=== PATIENT | male | born 1960 | race Caucasian/White ===

== ENCOUNTER → 2018-05-09 | Outpatient (CLI) | payer BC, OTHER ==
--- NOTE | ~2018-05-09 | MCT ---
[facility] [place] [address] METHACHOLINE CHALLENGE TEST Name: RICARDA PHELAN Room #: REG [facility] Kira#: [id number] Admission: 05/09/18 Attend Phys: Boy Peñaloza MD Discharge: Date of : 56 Report #: [id number] THIS REPORT FOR: //name// Height: in Exam Date: Weight: lbs BTPS: X >> PRE BRONCHODILATOR: PREDICTED BEST %PRED FORCED VITAL CAPACITY (FRC) L LPM % FORCED EXP VOL/SEC (FEV1) L FEV/FVC % MAX MID-EXP FLOW (FEF 25-75) L/SEC L/SEC % PEAK EXP FLOW RATE (FEF MAX) L/MIN L/MIN MED-VC RATIO (FEF 50/FEF 50) .09 Baseline: Phenol Saline Level 1: 0.025 mg/ml BEST %PRED %CHANGE BEST %PRED %CHANGE FVC L % % FVC L % % FEV1 L % % FEV1 L % % Level 2: 0.25 mg/ml Level 3: 2.5 mg/ml BEST %PRED %CHANGE BEST %PRED %CHANGE FVC L % % FVC L % % FEV1 L % % FEV1 L % % . Level 4: 10 mg/ml Level 5: 25 mg/ml BEST %PRED %CHANGE BEST %PRED %CHANGE FVC L % % FVC L % % FEV1 L % % FEV1 L % % Post Bronchodilator: 1st Treatment Post Bronchodilator: 2nd Treatment BEST %PRED %CHANGE BEST %PRED %CHANGE FVC L % % FVC L % % FEV1 L % % FEV1 L % % Post Bronchodilator: 3rd Treatment BEST %PRED %CHANGE FVC L % % FEV1 L % % >> INTERPRETATION: [facility] [address] [place] [address] METHACHOLINE CHALLENGE TEST Name: DHEERAJ PHELANAILEEN Hill Room #: REG QING Malone#: [id number] Admission: 05/09/18 Attend Phys: Boy Peñaloza MD Discharge: Date of : 56 Report #: [id number] CC: Boy Celaya DATE OF SERVICE: 05/09/2018 FEV1 baseline was 4.09 liters (with increasing doses of methacholine, the FEV1 did not decline significantly). Response ____ to 3.38 liters a total of 17% decline with mild response to bronchodilator therapy in recovery. IMPRESSION: Overall, negative methacholine challenge test. There is some mild response suggestive of mildly hypersensitive response. By: Bigg Almodovar MD /nt
== END ==
LOC: PUL 08:06
DX: R06.00 Dyspnea, unspecified (principal)

== ENCOUNTER → 2019-07-24 | Outpatient (CLI) | payer BC, OTHER ==
[~2019-07-24] VITALS: Ht 182.9 cm; Wt 88.9 kg
[~2019-07-24] MED LIST: ASA81BEC PO; BYSTOLIC 5 MG5 MG PO; CLARITIN10 M3 PO; CO Q-10100 M1 PO; GINGER250 MG PO; GLUCOSAMINE1000 MG PO; LIPITOR 20 MG T20 M1 PO; NEXIUM 24HR20 M2 PO; NEXIUM5 MG PO; SENNA PLUS TAB1 EACH PO
--- NOTE | ~2019-07-24 | H ---
[facility] [place] [address] [place] [address] HISTORY AND PHYSICAL Name: RICARDA PHELAN Room #: REG QING [facility]#: [id number] Admission: 07/24/19 Attend Phys: Mic Dawson MD, Discharge: Date of : 56 Report #: [id number] THIS REPORT FOR: //name// CC: FAM unknown Mic FREY DATE OF SERVICE: 07/24/2019 SHORT STAY SUMMARY HISTORY OF PRESENT ILLNESS: The patient is a 59-year-old male who referred up by Dr. Husam Tomlin from [facility]. He has had some progressive dyspnea, shortness of breath, and fatigue for the last 6 months. He had somewhat of an equivocal stress test. He has a strong family history on his maternal side for premature coronary artery disease. He has been maintained on aspirin and atorvastatin. He also takes Claritin, CoQ10, glucosamine, and Nexium. He denies PND, orthopnea, but a definite decrease in exercise tolerance, no energy. 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 He has had some difficulty continuing on. He is a former tobacco user. PAST MEDICAL HISTORY: Positive for hypercholesterolemia, some borderline hypertension, and lipoma, laparoscopic cholecystectomy, and mild COPD from prior tobacco use. SOCIAL HISTORY: He is . He is a construction foreman. No current tobacco. Social alcohol, daily beers. FAMILY HISTORY: Strongly positive for premature coronary artery disease on his maternal side. REVIEW OF SYSTEMS: Essentially negative except for stated above with some nocturia noted. LABORATORY DATA: H and H was 14 and 44. His creatinine is 1.0. PHYSICAL EXAMINATION: VITAL SIGNS: Blood pressure is 142/80, pulse is 80s and regular. HEENT: Eyes reveal xanthelasmas. Pharynx is clear. NECK: Shows preserved upstrokes without JVD or bruits. LUNGS: Clear, slight expiratory phase. CARDIOVASCULAR: Regular rate and rhythm, S1, S2, without murmur or gallop. ABDOMEN: Soft. No HSM or abdominal bruit. EXTREMITIES: No edema. Distal pulses intact. NEUROLOGIC: Nonfocal. SKIN: Warm and dry without xanthoma or ulcer. [facility] [address] [place] [address] HISTORY AND PHYSICAL Name: RICARDA PHELAN Room #: [facility].#: [id number] Admission: 07/24/19 Attend Phys: Mic Dawson MD, Discharge: Date of : 56 Report #: [id number] MUSCULOSKELETAL: No gross joint deformity. HOSPITAL COURSE: The patient subsequently taken to the catheterization lab. There is evidence of significant 3-vessel coronary artery disease. This is proximal disease within the proximal LAD of 70-75%, filling of relatively large diagonal and LAD system. An ostial circ, which fills one moderate sized OM, which is 90%, just off the left main and the large dominant right has high-grade long lesions in the proximal and mid distal segments of 80%. Well preserved PDA, CHENCHO. His distal targets were quite good. His LV function is preserved. He will be best served with revascularization by bypass. Carotid Doppler from last month in [place] had minimal plaquing. ASSESSMENT: 1. Three-vessel coronary artery disease. Recommend revascularization by bypass surgery. 2. Hypercholesterolemia. 3. Mild chronic obstructive pulmonary disease with prior tobacco use. 4. Borderline hypertension. 5. Degenerative joint disease. RECOMMENDATIONS AND PLAN: Dr. Ronquillo, CV Surgery is going to evaluate the patient. He does not have high-grade lesions that I would be concerned about an acute closure. I am going to add a beta hayley 5 mg of Bystolic for cardioprotection, have him avoid the elements or work in the elements and then hopefully surgery will be scheduled for next week. I have discussed this with the patient and his . I will also notify Dr. Tomlin. Thank you for asking us to assist in the care of this patient. By: 0934 0958 /nt
[2019-07-24 06:50] VITALS: BP 135/68
[2019-07-24 07:02] LABS: HEMATOCRIT 44.3 % (42.0-52.0); HEMOGLOBIN 14.6 gm/dL (14.0-18.0); MCH 30.5 pg (26.0-34.0); MCHC 32.9 g/dL (28.0-37.0); MCV 92.5 fL (80.0-100.0); PLATELET COUNT 280 thou/uL (150-400); RBC 4.79 mil/uL (4.50-6.00); RDW 12.9 % (10.5-14.5); WBC 6.9 thou/uL (4.0-11.0)
[2019-07-24 07:09] LABS: CALCIUM 9.9 mg/dL (8.5-10.1); POTASSIUM 4.1 mmol/L (3.5-5.1)
--- NOTE | 2019-07-24 08:35 | EKG ---
[place] [address] [facility] [place] [address] ELECTROCARDIOGRAM REPORT Name: RICARDA PHELAN Room #: REG [facility]#: [id number] Admission: 07/24/19 Attend Phys: Mic Dawson MD, Discharge: Date of : 56 Report #: [id number] THIS REPORT FOR: //name// [facility] Test Date: 2019-07-24 Test Time: 07:17:59 Pat Name: RICARDA PHELAN Department: Room: Gender: M Business Process Manager: CORI : 1960 Requested By: Mic Dawson Order Number: [id number] MD: Vini Butterfield Measurements Intervals [place] Rate: 71 P: 65 IN: 175 QRS: -9 QRSD: 90 T: 41 QT: 367 QTc: 399 Interpretive Statements Sinus rhythm Probable left atrial enlargement RSR' in V1 or V2, right VCD or RVH Minimal ST elevation, anterior leads No previous ECG available for comparison Electronically Signed On 07-24-2019 8:34:46 [employer] by Vini Butterfield [email or web address] <ELECTRONICALLY SIGNED> By: Vini Butterfield MD 07/24/19 0834 6 6 Vini Butterfield MD /EPI
[2019-07-24 10:34] LABS: ALBUMIN 4.1 g/dL (3.4-5.0); TOTAL BILIRUBIN 0.3 mg/dL (<0.1-1.0); TOTAL PROTEIN 7.2 g/dL (6.4-8.2)
[2019-07-24 10:38] LABS: APTT 28.1 Seconds (24.5-32.8); PROTIME 10.7 Seconds (9.3-11.4)
[2019-07-24 10:45] LABS: ANISOCYTOSIS SLIGHT
[2019-07-24 11:18] LABS: URINE BILIRUBIN NEGATIVE (Negative); URINE BLOOD NEGATIVE (Negative); URINE CLARITY CLEAR; URINE COLOR YELLOW; URINE GLUCOSE-RANDOM* NEGATIVE (Negative); URINE KETONES NEGATIVE (Negative); URINE LEUKOCYTES-REFLEX NEGATIVE (Negative); URINE NITRITE-REFLEX NEGATIVE (Negative); URINE PROTEIN (DIPSTICK) NEGATIVE (Negative); URINE UROBILINOGEN 0.2 E.U./dl (0.2-1.0)
--- NOTE | 2019-07-24 13:02 | 2DMMODE ---
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90 cm2 [facility] [address] [place] [address] 2 D/M-MODE ECHOCARDIOGRAM Name: RICARDA PHELAN [facility] [id number] Admission: 07/24/19 Attend Phys: Mic Dawson, Discharge: Date of : 56 Report #: [id number] Mitral Valve E/A Ratio: 1.3 MV Decel. Time: 189.37 ms MV E Max Pawel.: 0.79 m/s MV A Pawel.: 0.62 m/s MV PHT: 54.92 ms IVRT: 92.27 ms Pulmonary Valve PV Peak Pawel.: 1.10 m/s PV Peak Gr.: 4.86 mmHg Pulmonary Vein P Vein S: 0.44 m/s P Vein A: 0.24 m/s P Vein D: 0.30 m/s P Vein A Dur.: 87.7 msec P Vein S/D Ratio: 1.47 Tricuspid Valve TR Peak Pawel.: 2.32 m/s TR Peak Gr.: 21.56 mmHg PA Pressure: 32.00 mmHg Left Ventricle The left ventricle is normal size. There is normal LV segmental wall motion. There is normal left ventricular wall thickness. The left ventricular systolic function is normal. The left ventricular ejection fraction is within the normal range. LVEF is 55-60%. The left ventricular diastolic function is normal. Right Ventricle The right ventricle is normal size. The right ventricular systolic function is normal. Atria The left atrium size is normal. The right atrium size is normal. Aortic Valve The aortic valve is mildly sclerotic No aortic regurgitation is present. There is no aortic valvular stenosis. Mitral Valve The mitral valve is normal in structure. There is no mitral valve regurgitation noted. No evidence of mitral valve stenosis. Tricuspid Valve The tricuspid valve is normal in structure. There is trace tricuspid [facility] [address] [place] [address] 2 D/M-MODE ECHOCARDIOGRAM Name: RICARDA PHELAN Liz Room #: [facility]#: [id number] Admission: 07/24/19 Attend Phys: Mic Dawson, Discharge: Date of : 56 Report #: [id number] regurgitation. Estimated PAP 30 mmHg. There is mild pulmonary hypertension. Pulmonic Valve The pulmonary valve is normal in structure. Trace pulmonic regurgitation.. Great Vessels The aortic root is normal in size. IVC is dilated and collapses >50% with inspiration. Pericardium There is no pericardial effusion. <Conclusion> The left ventricular systolic function is normal. There is normal LV segmental wall motion. LVEF is 55-60%. The aortic valve is mildly sclerotic No aortic regurgitation or stenosis. The mitral valve is normal in structure. No mitral valve regurgitation. There is trace tricuspid regurgitation. Estimated pulmonary artery pressure of 30 mmHg. There is no pericardial effusion. <ELECTRONICALLY SIGNED> By: Lopez Proctor MD, FACC 07/24/19 1301 1301 1301 Lopez Proctor MD, FACC /INF
--- NOTE | 2019-07-24 13:41 | CATHLAB ---
[facility] [place] [address] INVASIVE PROCEDURE REPORT Name: RICARDA PHELAN Room #: [facility] [id number] Admission: 07/24/19 Attend Phys: Mic Dawson, Discharge: Date of : 56 Report #: [id number] THIS REPORT FOR: //name// APPROVED REPORT Study performed: 07/24/2019 08:27:58 Patient Details The patient is a 59 year-old male Event Personnel Mic Dawson Joinery Machinist, Miranda Farooq RN RN, Marisela Cordova RN RN, Rachna Moss RTR, RAILROAD REPAIRER Monitor, Renee Mckeon RTR Scrub, Johanna Roman RTR Scrub Procedures Performed Art Access - R femoral artery* Left Heart Cath w/or w/o Coronaries [id number] [facility] [address] Initial Mod Sed Same Phys/QHP Gr 105155 06220 Mod Sed Same Phys/QHP Ea [id number] Hemostasis w/ Mynx , Right transradial approach Indication Chest pain Procedure Narrative The Right Groin^ was infiltrated with 1% Lidocaine subcutaneous anesthesia. A PINNACLE 6FR Sheath #[id number] sheath was inserted into the RFA^. Coronary angiography was performed using coronary diagnostic catheters. The right coronary system was accessed and visualized with a JR4 catheter. The left coronary system was accessed and visualized with a JL4 catheter. The left ventricle was accessed and visualized with a PIGTAIL catheter. Left ventriculogram was performed in 30 degree projection. An aortogram of the abdominal aorta was performed. The patient tolerated the procedure well and there were no complications associated with the procedure. There was no hematoma. Intraoperative Conscious Sedation Sedation start time: 8:41 Case end Time: 9:14 Fentanyl 100 mcg Versed 2 mg Fluoro Time: 1.40 minutes Dose: DAP 2714.90 cGycm2 336 mGy Contrast Type and Amount: Omnipaque 160 ml [facility] [address] [place] [address] INVASIVE PROCEDURE REPORT Name: RICARDA PHELAN [facility]: [facility] [id number] Admission: 07/24/19 Attend Phys: Mic Dawson, Discharge: Date of : 56 Report #: [id number] Hemodynamics The aortic pressure is 141/78 mmHg with a mean of 104 mmHg. The left ventricular pressure is 135/10 mmHg with a mean of mmHg. The left ventricular end diastolic pressure is 22 mmHg. Conclusion #1 left main with mild distal disease giving rise to LAD and circumflex #2 the LAD is eccentric 7075% proximal lesion long off the left main filling a moderate size LAD diagonal system which is widely patent #3 circumflex OM has an ostial lesion of 80-90% just off the left main filling one small to moderate size OM branch widely patent #4 dominant right coronary eccentric lesion of 80-90% proximal and then a mid distal 80% lesion filling a well preserved PDA CHENCHO system which is widely patent #5 normal left ventricular size and systolic function EF 60% #6 abdominal aorta intact without aneurysm or stenosis. Renal arteries widely patent. Recommendations plan: Continue aggressive risk factor modification. CV surgical consultation. Due to proximal nature of this disease and excellent distal targets this patient will be best served with revascularization by bypass. Will discuss with CT surgery and senior technical specialist in [place]. Addition of beta hayley prior to upcoming surgery will be initiated. Continue statin therapy. <ELECTRONICALLY SIGNED> By: Mic Dawson MD, FACC 07/24/19 1341 1341 1341 Mic Dawson MD, FACC /INF
[2019-07-25 01:06] LABS: GLYCOHEMOGLOBIN (HGB A1C) 5.8 % (4.8-5.6)
--- NOTE | 2019-07-27 07:36 | HC ---
[facility] [place] [place] [address] CONSULTATION Name: RICARDA PHELAN Room #: REG QING NewtonSnow#: [id number] Admission: 07/24/19 Attend Phys: Mic Dawson MD, Discharge: Date of : 56 Report #: [id number] THIS REPORT FOR: //name// CC: FAM unknown Mic FREY DATE OF SERVICE: 07/24/2019 HISTORY OF PRESENT ILLNESS: We were asked to see the patient by Dr. Dawson. The patient is a 59-year-old with coronary artery disease. Catheterization done today shows 3-vessel coronary artery disease including 90% ostial circumflex stenosis, 80% right coronary stenosis and 70% left anterior descending. Left ventricular function appears satisfactory. The patient presents with progressive fatigue, shortness of breath and neck and chest discomfort over the last 2 years. The patient also has other symptoms such as lack of ambition and generalized fatigue and tingling of the hands and feet. The patient denies other medical problems such as diabetes mellitus. He is treated for hyperlipidemia. MEDICATIONS AT HOME: Aspirin, atorvastatin, Claritin, CoQ10, glucosamine, Nexium, senna. ALLERGIES: OXYCODONE causes abdominal pain. SOCIAL HISTORY: The patient is . He is a commercial construction superintendent. A former smoker, who quit in 1995. REVIEW OF SYSTEMS: GENERAL: Negative. CONSTITUTIONAL: Denies fever or weight change. Does admit to generalized lack of energy. EYES: No vision changes. HEENT: Denies headache, ear problems, nasal or sinus drainage. CARDIAC: No palpitations. No classical angina. RESPIRATORY: Some shortness of breath with exertion. GASTROINTESTINAL: Does have reflux, treated with Nexium, denies nausea, vomiting, blood in stool. GENITOURINARY: Some nocturia. No urgency or frequency. SKIN: No rash or infection. MUSCULOSKELETAL: No unusual bone or joint pain. ENDOCRINE: No palpitations. No tremor, no goiter. NEUROLOGIC: As mentioned, tingling in the feet and hands. No other motor or sensory deficit. [facility] [address] [place] [address] CONSULTATION Name: RICARDA PHELAN Room #: REG QING Malone#: [id number] Admission: 07/24/19 Attend Phys: Mic Dawson MD, Discharge: Date of : 56 Report #: [id number] PHYSICAL EXAMINATION: CONSTITUTIONAL: The patient is lying in bed after his catheterization, seems comfortable. VITAL SIGNS: Blood pressure 140/80, heart rate 80. HEENT: Normocephalic. Pupils are round, equal. Full extraocular movement. No icterus, no arcus. NECK: No mass, no bruit. CHEST: Clear to auscultation. HEART: Rhythm regular, no murmur. ABDOMEN: Soft. No mass or tenderness. EXTREMITIES: No clubbing, cyanosis or edema. VASCULAR: No obvious saphenous vein problems, 2+ popliteal pulses bilaterally. MUSCULOSKELETAL: No bone or joint asymmetry or deformity. NEUROLOGIC: Moves all extremities. No motor or sensory defect. PSYCHIATRIC: Shows insight into problem. Oriented to time, place and person. ASSESSMENT: The patient has 3-vessel coronary artery disease, not ideal for angioplasty. I have discussed the risks and details of bypass surgery. This includes but is not limited to bleeding, infection, anesthesia risks, heart and lung problems, stroke and . Options and alternatives were reviewed. The patient understands all of this and wishes to proceed. We will obtain the typical preoperative testing and organize the patient to return for surgery. Thank you for the consult. <ELECTRONICALLY SIGNED> By: Ludin Ronquillo MD 07/27/19 0736 1108 1418 Ludin Ronquillo MD /nt
== END | disposition home or self-care (01) ==
LOC: CATH 07-03 08:48
PROVIDERS: Internal Medicine Cardiovascular Disease; Surgery Vascular Surgery
DX: R07.9 Chest pain, unspecified (principal); I25.10 Atherosclerotic heart disease of native coronary artery without angina pectoris; I07.1 Rheumatic tricuspid insufficiency; I35.8 Other nonrheumatic aortic valve disorders; R06.00 Dyspnea, unspecified; E78.5 Hyperlipidemia, unspecified; J44.9 Chronic obstructive pulmonary disease, unspecified; R03.0 Elevated blood-pressure reading, without diagnosis of hypertension; K21.9 Gastro-esophageal reflux disease without esophagitis; M19.90 Unspecified osteoarthritis, unspecified site; E78.00 Pure hypercholesterolemia, unspecified; E66.09 Other obesity due to excess calories; Z98.890 Other specified postprocedural states; Z88.8 Allergy status to other drugs, medicaments and biological substances; Z79.899 Other long term (current) drug therapy; Z79.82 Long term (current) use of aspirin; Z87.891 Personal history of nicotine dependence; Z90.49 Acquired absence of other specified parts of digestive tract; Z82.49 Family history of ischemic heart disease and other diseases of the circulatory system

== ENCOUNTER → 2019-07-29 | Outpatient (CLI) | payer BC, OTHER ==
[~2019-07-29] MED LIST changes: +METOPROLOL SUCC25 M1 PO; +PACERONE 200 M200 M1 PO
== END ==
LOC: ULTRA 09:36
DX: Z01.810 Encounter for preprocedural cardiovascular examination (principal)

== ENCOUNTER 2019-08-01 05:53 | Inpatient (IN) | payer BC, OTHER ==
[~2019-08-01] VITALS: Ht 182.9 cm; Wt 81.6 kg
[2019-08-01] VITALS (12 sets, daily range): BP systolic 95–119; BP diastolic 56–74
[~2019-08-01 05:53] MED LIST changes: -METOPROLOL SUCC25 M1 PO; -PACERONE 200 M200 M1 PO
[2019-08-01 12:19] LABS: HEMATOCRIT 28.3 % (42.0-52.0); MCH 30.6 pg (26.0-34.0); MCHC 33.2 g/dL (28.0-37.0); MCV 92.2 fL (80.0-100.0); RBC 3.07 mil/uL (4.50-6.00); RDW 12.8 % (10.5-14.5)
[2019-08-01 12:23] LABS: HEMOGLOBIN 9.4 gm/dL (14.0-18.0)
[2019-08-01 12:32] LABS: POC BE 5 mmol/L (-2.0 to +3.0); POC CA IONIZED 4.1 mg/dL (4.5-5.3); POC GLUCOSE 144 mg/dL (70-99); POC HCO3 28.6 mmol/L (22.0-26.0); POC HEMOGLOBIN 9.5 g/dL (14.0-18.0); POC POTASSIUM 5.2 mmol/L (3.5-5.1); POC SODIUM 136 mmol/L (136-145); POC pCO2 41.6 mmHg (35.0-45.0); POC pH 7.445 (7.360-7.450)
[2019-08-01 12:32] LABS: POC BE 3 mmol/L (-2.0 to +3.0); POC CA IONIZED 5.1 mg/dL (4.5-5.3); POC GLUCOSE 110 mg/dL (70-99); POC HCO3 27.7 mmol/L (22.0-26.0); POC HEMOGLOBIN 13.3 g/dL (14.0-18.0); POC POTASSIUM 4.5 mmol/L (3.5-5.1); POC SODIUM 139 mmol/L (136-145); POC pCO2 43.9 mmHg (35.0-45.0); POC pH 7.409 (7.360-7.450)
[2019-08-01 12:32] LABS: POC BE 3 mmol/L (-2.0 to +3.0); POC GLUCOSE 120 mg/dL (70-99); POC HCO3 28.6 mmol/L (22.0-26.0); POC HEMOGLOBIN 12.9 g/dL (14.0-18.0); POC POTASSIUM 4.5 mmol/L (3.5-5.1); POC SODIUM 138 mmol/L (136-145); POC pCO2 52.8 mmHg (35.0-45.0); POC pH 7.341 (7.360-7.450)
[2019-08-01 12:33] LABS: POC BE 0 mmol/L (-2.0 to +3.0); POC CA IONIZED 4.8 mg/dL (4.5-5.3); POC GLUCOSE 133 mg/dL (70-99); POC HCO3 24.9 mmol/L (22.0-26.0); POC HEMOGLOBIN 10.2 g/dL (14.0-18.0); POC POTASSIUM 3.6 mmol/L (3.5-5.1); POC SODIUM 141 mmol/L (136-145); POC pCO2 43.4 mmHg (35.0-45.0); POC pH 7.367 (7.360-7.450)
[2019-08-01 12:33] LABS: POC BE 2 mmol/L (-2.0 to +3.0); POC CA IONIZED 4.1 mg/dL (4.5-5.3); POC GLUCOSE 165 mg/dL (70-99); POC HCO3 26.2 mmol/L (22.0-26.0); POC HEMOGLOBIN 8.5 g/dL (14.0-18.0); POC POTASSIUM 5.4 mmol/L (3.5-5.1); POC SODIUM 131 mmol/L (136-145); POC pCO2 38.5 mmHg (35.0-45.0)
[2019-08-01 12:33] LABS: POC BE 0 mmol/L (-2.0 to +3.0); POC CA IONIZED 4.8 mg/dL (4.5-5.3); POC GLUCOSE 163 mg/dL (70-99); POC HEMOGLOBIN 8.8 g/dL (14.0-18.0); POC POTASSIUM 4.1 mmol/L (3.5-5.1); POC SODIUM 139 mmol/L (136-145); POC pCO2 42.1 mmHg (35.0-45.0); POC pH 7.381 (7.360-7.450)
[2019-08-01 12:33] LABS: POC BE 3 mmol/L (-2.0 to +3.0); POC CA IONIZED 4.3 mg/dL (4.5-5.3); POC GLUCOSE 190 mg/dL (70-99); POC HEMOGLOBIN 8.8 g/dL (14.0-18.0); POC POTASSIUM 5.3 mmol/L (3.5-5.1); POC SODIUM 135 mmol/L (136-145); POC pCO2 41.4 mmHg (35.0-45.0); POC pH 7.422 (7.360-7.450)
[2019-08-01 12:45] LABS: APTT 26.1 Seconds (24.5-32.8); FIBRINOGEN 137.6 mg/dL (210-360); PROTIME 15.5 Seconds (9.3-11.4)
[2019-08-01 12:47] LABS: INR 1.5
[2019-08-01 13:07] LABS: BE(vivo) -2.7 mmol/L (-2 to +3); HCO3 23.1 mmol/L (22.0-26.0); PCO2 44.1 mmHg (35.0-45.0); PO2 247.4 mmHg (80.0-100.0); pH 7.337 (7.360-7.450); sO2 99.5 % (92.0-98.0)
[2019-08-01 13:14] LABS: HEMATOCRIT 34.3 % (42.0-52.0); MCHC 33.7 g/dL (28.0-37.0); RBC 3.72 mil/uL (4.50-6.00); RDW 12.9 % (10.5-14.5); WBC 16.5 thou/uL (4.0-11.0)
[2019-08-01 13:15] LABS: HEMOGLOBIN 11.5 gm/dL (14.0-18.0)
[2019-08-01 13:21] LABS: CALCIUM 8.2 mg/dL (8.5-10.1); MAGNESIUM 2.5 mg/dL (1.8-2.4)
[2019-08-01 13:29] LABS: APTT 28.6 Seconds (24.5-32.8); INR 1.3; PROTIME 13.4 Seconds (9.3-11.4)
--- NOTE | 2019-08-01 14:54 | NUR ---
ASSUMED CARE @ 1255 08/01/19, PT ARRIVED IN THE ICU WITH THE ASSIST OF NURSING STAFF, ANESTHESIA TEAM, DR TOMLINSON AND BRAYAN (JAKE). PT ARRIVED ON THE UNIT WITH PROPOFOL @ 20 GTT RUNNING. PLAN OF CARE- CONT TO SANDRA
[2019-08-01 15:11] LABS: BE(vivo) -2.8 mmol/L (-2 to +3); HCO3 22.3 mmol/L (22.0-26.0); PO2 135.4 mmHg (80.0-100.0); pH 7.364 (7.360-7.450); sO2 98.6 % (92.0-98.0)
--- NOTE | 2019-08-01 19:32 | NUR ---
Care assumed at 1900. Pt slightly drowsy but oriented x4, c/o of pain at sternal incision and in upper shoulders bilaterally, rating it 8/10. Fentanyl given for pain. Mediastinal and plural chest tubes patent with appropriate amount of sero-sanguinous drainage. Urine output 70-100 cc/hr.
[2019-08-02 05:28] LABS: HEMATOCRIT 35.1 % (42.0-52.0); HEMOGLOBIN 11.6 gm/dL (14.0-18.0); MCH 30.5 pg (26.0-34.0); MCHC 32.9 g/dL (28.0-37.0); MCV 92.7 fL (80.0-100.0); RBC 3.79 mil/uL (4.50-6.00); RDW 12.9 % (10.5-14.5); WBC 13.1 thou/uL (4.0-11.0)
[2019-08-02 05:33] LABS: CALCIUM 8.4 mg/dL (8.5-10.1); MAGNESIUM 2.2 mg/dL (1.8-2.4); POTASSIUM 4.1 mmol/L (3.5-5.1)
--- NOTE | 2019-08-02 06:10 | NUR ---
VS have remained stable through the night. CO 5.0 - 6.7, CI 2.4-3.2, SBP remains > 105, MAP > 60, SVR 750-1050. Urine output approximately 50 cc/hr. Sero-sanguinous drainage from Mediastinal CTs (280 cc for this shift) and Left Plural CT (100 cc this shift). Pt has been having intermittent hot flashes along with post op pain. Fentanyl 25-50 mcg IVP given as needed with partial relief obtained. Taking water and ice chips without nausea.
--- NOTE | 2019-08-02 08:46 | NUR ---
ALERT AND ORIENTED, VITALS STABLE. SWAN ESTRELLA, A-LINE, CHEST TUBES DOCUMENTED. C/O OF PAIN IN THE LEFT SHOULDER-MEDICATED WITH PRN MEDS. UP TO THE CHAIR WITH MINIMAL ASSISTANCE. ELEONORA WRAP REMOVED FROM LLE. PATIENT DENIES NAUSEA. AWAITING DIET ORDERS. TEMP PACEMAKER ATTACHED BUT OFF AT THIS TIME.
[2019-08-02 10:00] VITALS: BP 107/63
--- NOTE | 2019-08-02 11:24 | NUR ---
LUCERO DE LA ROSA DC'Lee AND PACER WIRES CAPPED PER DR. TOMLINSON'S ORDERS. DR. TOMLINSON ROUNDING AT THIS TIME. P.T WORKING WITH PATIENT. TOLERATING WELL. DIET ORDERED FOR LUNCH.
--- NOTE | 2019-08-02 16:06 | NUR ---
REPORT GIVEN TO ASHLY RICE. PATIENT ASSISTED BACK TO BED AND TOLERATED WELL.
--- NOTE | 2019-08-02 17:06 | NUR ---
Care assumed at 1500. Pt up in chair, assisted back to bed about 1600 with minimal assist of 1. Skin tears noted on right lateral scapula, slightly below left lateral scapula, and left side midway distal from axilla. Areas pink and dry. Mepilex drsg applied to all three sites for pt comfort. Pt c/o of left shoulder pain returning, rated pain 6/10. Stated Toradol helped a lot this a.m. Dr. Dawson notified and 3 more scheduled doses ordered. Pt given oral Tylenol and is resting more comfortably now. Monitor remains sinus rhythm. Taking fluids well; maintenance IV dc'd.
[2019-08-03] VITALS (9 sets, daily range): BP systolic 88–122; BP diastolic 46–71
--- NOTE | 2019-08-03 05:38 | NUR ---
ASSUMED CARE OF PT AT 1900. DR. TOMLINSON D/C'd MEDIASTINAL CHEST TUBES AT 1920. PT IN SEVERE PAIN AT START OF SHIFT (RATED PAIN 9/10). SCHEDULED TORADOL GIVEN, WITH VERY LITTLE PAIN RELIEF. PT SAID TORADOL WORKED BETTER IN THE MORNING. PT GIVEN FENTANYL X1. PT CONTINUED TO HAVE PAIN LATER OVERNIGHT, BUT IT WAS BETTER CONTROLLED WITH THE ALTERNATING OF TORADOL AND TYLENOL. WILL CONTINUE TO MONITOR.
--- NOTE | 2019-08-03 08:00 | NUR ---
FENTANYL 50MCG IV GIVEN PRIOR TO GETTING OOB. OT HERE. ASSISTED THIS RN GETTING PT OOB. STANDING WEIGHT OBTAINED. PT STATES PAIN 5 OF [address] TOMLINSON HERE. ORDERS GIVEN.
--- NOTE | 2019-08-03 09:55 | NUR ---
METOPROLOL HELD DUE TO SBP 91.
--- NOTE | 2019-08-03 11:50 | NUR ---
SBP LOW BOTH CUFF AND ART LINE RUNNING 88-92 SYSTOLIC. ALSO PAIN STATES PAIN UNCONTROLLED POST TORADOL. DR. TOMLINSON CALLED. ORDERS GIVEN FOR BMP, CBC AND ALBUMIN. REPORTED PT I&0 AND VSS. PT UP IN CHAIR AND ASYMTOMATIC. METOPROL HAD BEEN HELD THIS AM. ALBUMIN GIVEN AND PT BP CAME BACK UP TO 120S BRIEFLY. 1230 DR[address] TOMLINSON CALLED UNIT AND UPDATE GIVEN. 1245 SBP DOWN IN LOW 90S AGAIN. DESPITE ALBUMIN AND PT INCREASING PO INTAKE. PT PLACED BACK IN BED AND BP CAME UP TO 120S SYSTOLIC. PT ALSO STATES PAIN IS BETTER POST TYLENOL.
[2019-08-03 12:12] LABS: HEMATOCRIT 31.2 % (42.0-52.0); HEMOGLOBIN 10.5 gm/dL (14.0-18.0); MCH 30.8 pg (26.0-34.0); MCHC 33.7 g/dL (28.0-37.0); MCV 91.1 fL (80.0-100.0); RBC 3.42 mil/uL (4.50-6.00); RDW 12.6 % (10.5-14.5); WBC 12.2 thou/uL (4.0-11.0)
[2019-08-03 12:19] LABS: CREATININE 0.9 mg/dL (0.7-1.3)
--- NOTE | 2019-08-03 14:21 | NUR ---
ELOY INTRODUCER DCD. SUEN WHITE. WILL KEEP ART LINE UNTIL PT GETS OOB AGAIN TO WATCH BP CLOSELY.
--- NOTE | 2019-08-03 16:00 | NUR ---
TRANSFERED TO [facility] 207 ALL BELONGINGS WITH PT. REPORT CALLED.
--- NOTE | 2019-08-03 17:20 | O ---
[facility] [place] [address] OPERATIVE REPORT Name: RICARDA PHELAN Room #: 207-P ADM IN M.R.#: [id number] Admission: 08/01/19 Attend Phys: Ludin Ronquillo MD Discharge: Date of : 56 Report #: [id number] THIS REPORT FOR: //name// CC: Ludin FREY Physician staff DATE OF SERVICE: 08/01/2019 PREOPERATIVE DIAGNOSIS: Coronary artery disease. POSTOPERATIVE DIAGNOSIS: Coronary artery disease. OPERATION: Coronary artery bypass x 3 including left internal mammary artery to left anterior descending artery, saphenous vein to marginal and saphenous vein to right coronary artery and endoscopic harvest, left greater saphenous vein. SURGEON: Ludin Ronquillo MD SUPERVISOR SHUTTLE PREPARATION: JAKE Gallardo. ANESTHESIA: General. INDICATIONS: The patient is a 59-year-old with progressive fatigue and weakness. Cardiac catheterization demonstrated a high-grade ostial circumflex stenosis along with moderately severe LAD and right coronary lesions. Left ventricular function is satisfactory. FINDINGS AND TECHNIQUE: After general anesthesia was established, saphenous vein was harvested using an endoscopic approach and prepared for use as a conduit. Exposure was obtained through median sternotomy. Left internal mammary artery was harvested. Pericardial well was made. Cannulation sutures were placed. Heparin was given. Aorta was cannulated. Right atrium was cannulated. Cardioplegia needle was positioned in the aortic root. Retrograde cardioplegic catheter was placed in the coronary sinus. Cardiopulmonary bypass was established. Aorta was cross clamped. Antegrade and retrograde cardioplegia were given. Ice was poured in the pericardial well. The heart was stopped. During electromechanical arrest, the distal anastomoses were performed and end-to-side anastomosis was made between vein and the right coronary artery at the crux. This was a 2-mm vessel. Cold cardioplegia was given. Separate segment of vein was sewn in end-to-side fashion to the first marginal artery. This was a 1.5 mm vessel. Cold cardioplegia was given. Left internal mammary artery was sewn in end-to-side fashion to the left anterior descending artery. This was a 1.4 mm vessel. The anastomosis was checked with the temperature [facility] [address] [place] [address] OPERATIVE REPORT Name: RICARDA PHELAN Room #: 207-P ADM IN M.R.#: [id number] Admission: 08/01/19 Attend Phys: Ludin Ronquillo MD Discharge: Date of : 56 Report #: [id number] technique. Cold cardioplegia was given. Two proximal anastomoses were performed. When these were complete, warm retrograde cardioplegia was given followed by warm continuous blood to the coronary sinus. When this infusion was complete, the crossclamp was removed. De-airing maneuvers were performed. The anastomoses were inspected and found to be satisfactory. As the patient warmed, nice cardiac activity resumed, chest tubes and pacing wires were placed. A marker was placed around the proximal anastomoses. When the patient was warm, he was weaned from cardiopulmonary bypass. Venous cannula was removed. Protamine was given, the aortic cannula was removed. Flows were measured in the bypass grafts. When hemostasis was satisfactory, chest was irrigated with antibiotic solution and closed in the usual fashion. The patient was taken to the Intensive Care Unit in good condition having tolerated the procedure well. All counts reported as correct. <ELECTRONICALLY SIGNED> By: Ludin Ronquillo MD 08/03/19 1720 1115 1133 Ludin Ronquillo MD /nt
--- NOTE | 2019-08-03 20:12 | NUR ---
ASSUMMED PT CARE AT APPROXIMATELY 1600. PT A&O X4. ASSESSMENT CHARTED FALL PRECAUTIONS IN PLACE. PT DENIES HAVING CHEST PAIN. PT DENIES HAVING SOB. PT STATES HE HAS ACUTE PAIN IN L SHOULDER AND L RIB AREA. PT RECEIVED ANALGESICS. PT STATED ANALGESICS DID NOT HELP RELIEVE PAIN. DR. TOMLINSON NOTIFIED ABOUT PT STILL HAVING PAIN. DID NOT WANT TO ADD ADDITIONAL ANALGESICS AT THIS TIME. CHEST TUBE DC. DR LUIS NOTIFIED OF POST-CT XRAY RESULTS. STATED UNDERSTANDING AND STATED TO CONTINUE TO MONITOR. LLE GRAFT SITE DRESSINGS C/D/I. PT HAS VOIDED SINCE KOHLI CATH BEING DC. PT AMBULATES STEADY/INDEPENDENT C ASSIST X1. PT COMFORTABLE IN BED. PT DENIES HAVING FURTHER CONCERNS AT THIS TIME. VITAL SIGNS STABLE. BLOOD SUGARS STABLE. PT AND PT'S FAMILY EDUCATED ABOUT POC. PT AND PT'S FAMILY STATED UNDERSTANDING AND DENIED HAVING FUTHER QUESTIONS.
[2019-08-04] VITALS: BP 93/58
--- NOTE | 2019-08-04 03:44 | NUR ---
ASSUMED CARE AT 1900. PT ALERT AND ORIENTED. REPORTS HEADACHE. TYLENOL GIVEN. PT CHEST XRAY PAGED TO DR ROSENBERG WITH NO AVAIL. DR LUIS NOTIFIED. PT AMBULATED AROUND THE UNIT. WELL TOLERATED WITH MINIMAL SOB. O2 SATS MAINTAINED PRE AND POST AMBULATION. PT CURRENTLY STABLE. VITALS STABLE. MINIMAL CHEST INCISION SORENESS,. DRESSING C/D/I. NO FURTHER C/O. WILL CONTINUE TO FOLLOW POC.
[2019-08-04 04:30] VITALS: BP 115/58
[2019-08-04] MEDS ORDERED: METOPROLOL SUCC25 M1 PO (08:10)
[2019-08-04] MEDS ORDERED: PACERONE 200 M200 M1 PO (08:10)
[2019-08-04 11:21] VITALS: BP 114/65
[2019-08-04 15:38] VITALS: BP 123/73
--- NOTE | 2019-08-04 15:53 | EKG ---
[address] [place] [address] ELECTROCARDIOGRAM REPORT Name: RICARDA PHELAN Room #: 207-P ADM IN M.R.#: [id number] Admission: 08/01/19 Attend Phys: Ludin Ronquillo MD Discharge: Date of : 56 Report #: [id number] THIS REPORT FOR: //name// [facility] Test Date: 2019-08-01 Test Time: 13:52:56 Pat Name: RICARDA PHELAN Department: Room: 207 Gender: M Certified Driver Examiner: Yvonne BOTELLO : 1960 Requested By: Geremias Crowe Order Number: [id number] MD: Vini Butterfield Measurements Intervals [place] Rate: 89 P: 69 AR: 189 QRS: 28 QRSD: 85 T: 36 QT: 351 QTc: 428 Interpretive Statements Sinus rhythm Abnormal R-wave progression, early transition Compared to ECG 07/24/2019 07:17:59 Right ventricular hypertrophy no longer present ST (T wave) deviation no longer present Electronically Signed On 08-04-2019 15:53:24 WREATH MACHINE OPERATOR by Vini Butterfield [email or web address] <ELECTRONICALLY SIGNED> By: Vini Butterfield MD 08/04/19 1553 1352 1352 Vini Butterfield MD /EPI
--- NOTE | 2019-08-04 16:02 | EKG ---
[address] [address] ELECTROCARDIOGRAM REPORT Name: RICARDA PHELAN Room #: 207-P ADM IN M.R.#: [id number] Admission: 08/01/19 Attend Phys: Ludin Ronquillo MD Discharge: Date of : 56 Report #: [id number] THIS REPORT FOR: //name// [facility] Test Date: 2019-08-02 Test Time: 07:52:24 Pat Name: RICARDA PHELAN Department: Room: 207 Gender: M Form Raiser: Yessy HAMMONDS : 1960 Requested By: Geremias Crowe Order Number: [id number] MD: Vini Butterfield Measurements Intervals [place] Rate: 91 P: 57 NE: 161 QRS: -17 QRSD: 83 T: 29 QT: 340 QTc: 419 Interpretive Statements Sinus rhythm Probable left atrial enlargement Borderline left axis deviation Abnormal R-wave progression, early transition ST elevation suggests acute pericarditis Compared to ECG 07/24/2019 07:17:59 Electronically Signed On 08-04-2019 16:02:28 SCALE MANAGER by Vini Butterfield [email or web address] <ELECTRONICALLY SIGNED> By: Vini Butterfield MD 08/04/19 1602 [id number] Vini Butterfield MD /EPI
--- NOTE | 2019-08-04 16:03 | NUR ---
RD consult received for diet education. S/P CABG. Has moved out of ICU, ambulating. Pt was not in room at attempt for diet education needs. BG well controlled, A1C 5.8. Will follow up again tomorrow 08/05 for questions.
--- NOTE | 2019-08-04 18:06 | NUR ---
ASSUMED CARE AT SHIFT CHANGE, ALERT AND ORIENTED X4. VSS AND AFEBRILE. PROGRESSING TOWARDS GOALS, SHOWERED TODAY, AND DRESSING TO THE INCISION CHANGED. PLAN IS TO DISCHARGE HOME TOMORROW. WILL CONTINUE WITH POC.
[2019-08-04 20:39] VITALS: BP 106/59
--- NOTE | 2019-08-05 00:18 | NUR ---
ASSESSMENTS CHARTED, MEDS GIVEN CHARTED. CABG X 3 POST OP DAY 4. PATIENT RESTING AFTER SHOWER AND DRESSING CHANGE. REQUESTED TYLENOL FOR PAIN 5/10. PATIENT WALKED 4 TIMES DURING DAY. PLAN OF CARE IS TO INCREASE ACTIVITY AND GO HOME IN AM.
[2019-08-05 05:05] VITALS: BP 115/66
[2019-08-05 05:16] LABS: HEMATOCRIT 30.9 % (42.0-52.0); HEMOGLOBIN 10.3 gm/dL (14.0-18.0); MCH 30.8 pg (26.0-34.0); MCHC 33.5 g/dL (28.0-37.0); MCV 91.8 fL (80.0-100.0); RBC 3.36 mil/uL (4.50-6.00); RDW 12.9 % (10.5-14.5)
[2019-08-05 05:28] LABS: CALCIUM 8.9 mg/dL (8.5-10.1); CREATININE 0.9 mg/dL (0.7-1.3); POTASSIUM 3.7 mmol/L (3.5-5.1)
[2019-08-05 08:17] VITALS: BP 117/69
[2019-08-05] MEDS ORDERED: FERREX 150 PLU1 EAC1 PO (10:02)
[2019-08-05] MEDS ORDERED: ATORVASTATIN CA80 MG PO (10:03)
--- NOTE | 2019-08-05 10:03 | NUR ---
CM ASSESSMENT: CASE OPENED FOR DC PLANNING. PT IS POD #4 CABG. [place] [facility] [place] WORKS FT, INDEPENDENT WITH ADLS AND SHARES IADLS WITH SPOUSE. THERAPY HAS BEEN WORKING WITH PT AND AMBULATING 300 FT WITHOUT DEVICE. DISCUSSED WITH BRAYAN DICKSON THIS AM. LIKELY DC TODAY AND NO CM NEEDS ASSESSED.
[2019-08-05 10:10] VITALS: BP 117/69
--- NOTE | 2019-08-05 10:21 | NUR ---
Nutrition: RD met with pt and to review heart healthy guidelines. Had already reviewed materials. Questions answered and tips offered. Expect compliance. Pt to D/C today.
--- NOTE | 2019-08-05 10:49 | NUR ---
ASSUMED CARE PT SHIFT CHANGE. ASSESSMENT CHARTED. MEDS GIVEN PER OCT. PT ALERT AND ORIENTED. VSS. C/O PAIN-DENIES NEED FOR PAIN MEDS. CXR, EKG ORDERED SEE RESULTS. GAVIN DRESSING AND LEG DRESSINGS REMAIN CDI. DC ORDERS ACKNOWLEDGED AND IMPLEMEMTED. DC PAPERWORK DISCUSSED WITH PT AND SPOUSE. COMMUNICATES UNDERSTANDING. PT UP AND WALKING TOLERATING VERY WELL. IV REMOVED TELE REMOVED. PT LEFT UNIT AT APPROX 1040 WITH ALL BELONGINGS.
--- NOTE | 2019-08-08 14:53 | EKG ---
[address] [address] ELECTROCARDIOGRAM REPORT Name: RICARDA PHELAN Room #: 207- DIS IN M.R.#: [id number] Admission: 08/01/19 Attend Phys: Ludin Ronquillo MD Discharge: 08/05/19 Date of : 56 Report #: [id number] THIS REPORT FOR: //name// [facility] Test Date: 2019-08-05 Test Time: 09:11:57 Pat Name: RICARDA PHELAN Department: Room: 207 P Gender: M Physical Therapy Technician: PINA : 1960 Requested By: Geremias Crowe Order Number: [id number] MD: Vini Butterfield Measurements Intervals [place] Rate: 85 P: 63 UT: 162 QRS: -8 QRSD: 83 T: 74 QT: 376 QTc: 447 Interpretive Statements Sinus rhythm Abnormal R-wave progression, early transition Compared to ECG 08/02/2019 07:52:24 ST (T wave) deviation no longer present Electronically Signed On 08-08-2019 14:52:57 MOLD CLOSER HELPER by Vini Butterfield [email or web address] <ELECTRONICALLY SIGNED> By: Vini Butterfield MD 08/08/19 1452 0 0 Vini Butterfield MD /EPI
== END 2019-08-05 10:41 | disposition home or self-care (01) | DRG 236 ==
LOC: PRE → TBA 05:53 → PRE 06:41 → ICU 12:49 → PRE 13:02 → TBA 14:18 → 2N 08-03 16:08
PROVIDERS: Nurse Practitioner Adult Health; Physician Assistant; ADMIT Surgery Vascular Surgery
PROC: 021109W Bypass Coronary Artery, Two Arteries from Aorta with Autologous Venous Tissue, Open Approach (ICD-10-PCS; principal; 2019-08-01)
PROC: 02HQ32Z Insertion of Monitoring Device into Right Pulmonary Artery, Percutaneous Approach (ICD-10-PCS; principal; 2019-08-01)
PROC: 06BQ4ZZ Excision of Left Saphenous Vein, Percutaneous Endoscopic Approach (ICD-10-PCS; principal; 2019-08-01)
PROC: 5A1221Z Performance of Cardiac Output, Continuous (ICD-10-PCS; principal; 2019-08-01)
PROC: 4A133B3 Monitoring of Arterial Pressure, Pulmonary, Percutaneous Approach (ICD-10-PCS; principal; 2019-08-01)
PROC: 4A1239Z Monitoring of Cardiac Output, Percutaneous Approach (ICD-10-PCS; principal; 2019-08-01)
PROC: 05HY33Z Insertion of Infusion Device into Upper Vein, Percutaneous Approach (ICD-10-PCS; principal; 2019-08-01)
PROC: 02100Z9 Bypass Coronary Artery, One Artery from Left Internal Mammary, Open Approach (ICD-10-PCS; principal; 2019-08-01)
DX: I25.10 Atherosclerotic heart disease of native coronary artery without angina pectoris (principal); I10 Essential (primary) hypertension; E78.5 Hyperlipidemia, unspecified; J44.9 Chronic obstructive pulmonary disease, unspecified; Z53.29 Procedure and treatment not carried out because of patient's decision for other reasons; Z88.8 Allergy status to other drugs, medicaments and biological substances; Z87.891 Personal history of nicotine dependence; Z90.49 Acquired absence of other specified parts of digestive tract
CPT/HCPCS: 10081; 10204; 47000; 47001; 47002; 47297; 48888; 50010; 50249; 50409; 50456; 50498; 50668; 51301; 52131; 52259; 52287; 52314; 53327; 53358; 54118; 56455; 56524; 56525; 56526; 56527; 56528; 56531; 56534; 56668; 56760; 56898; 57093; 57116; 57167; 62110; 62950; 65003; 65020; 65047; 65090; 65135; 83006

== ENCOUNTER → 2021-07-26 | Outpatient (CLI) | payer BC, OTHER ==
[~2021-07-26] MED LIST changes: +ATORVASTATIN CA80 MG PO; +FERREX 150 PLU1 EAC1 PO; +METOPROLOL SUCC25 M1 PO; +PACERONE 200 M200 M1 PO
== END ==
LOC: SJCVCIMAG 07:13
PROVIDERS: ATTEND Internal Medicine Cardiovascular Disease
DX: I25.10 Atherosclerotic heart disease of native coronary artery without angina pectoris (principal); I10 Essential (primary) hypertension; E78.5 Hyperlipidemia, unspecified; Z95.1 Presence of aortocoronary bypass graft; E78.00 Pure hypercholesterolemia, unspecified; K21.9 Gastro-esophageal reflux disease without esophagitis; Z79.82 Long term (current) use of aspirin; Z79.899 Other long term (current) drug therapy; Z88.8 Allergy status to other drugs, medicaments and biological substances; Z72.89 Other problems related to lifestyle; Z87.891 Personal history of nicotine dependence